=== PATIENT | female | born 1995 | race Caucasian/White ===

== ENCOUNTER 2017-11-29 11:39 | Emergency (ER) | payer MEDICAID, OTHER ==
[2017-11-29 11:48] VITALS: O2SAT 98
[2017-11-29 12:54] LABS: HCG,QUALITATIVE URINE NEGATIVE (NEGATIVE)
[2017-11-29 12:56] LABS: URINE BILIRUBIN NEGATIVE (NEGATIVE); URINE BLOOD NEGATIVE (NEGATIVE); URINE CLARITY Clear (Clear); URINE COLOR Yellow (YELLOW); URINE GLUCOSE (UA) NORMAL (Normal); URINE LEUKOCYTE ESTERASE NEG Leu/uL (Negative); URINE PROTEIN NEGATIVE (NEGATIVE); URINE UROBILINOGEN NORMAL mg/dL (0.2-1.0)
--- NOTE | 2017-11-29 13:05 | C.PDOC ---
History Of Present Illness 22-year-old female presents to the emergency department with complaints of blood in stool. Patient states that three days ago, she had a small amount of bright red blood in her in the toilet after a bowel movement, and another episode yesterday which prompted ER visit. Patient denies rectal pain, abdominal /pelvicpain, nausea/vomiting/diarrhea, hematemesis, back pain, chest pain, SOB, weakness, trauma/injuries, prior similar symptoms. No other complaints at this time. Time Seen by Provider: 11/29/17 12:04 Chief Complaint (Nursing): GI Problem History Per: Patient History/Exam Limitations: no limitations Current Symptoms Are (Timing): Gone Severity: Mild Associated Symptoms: Other (rectal bleeding x 2 ) Abnormal Vaginal Bleeding: No Past Medical History Reviewed: Historical Data, Nursing Documentation, Vital Signs Vital Signs: Last Vital Signs Temp 98.8 F 11/29/17 13:21 Pulse 57 L 11/29/17 13:21 Resp 16 11/29/17 13:21 BP 106/70 11/29/17 13:21 Pulse Ox 98 11/29/17 16:47 - Medical History PMH: No Chronic Diseases - [facility] Procedures CLOSURE SKIN & SUBCUTANEOUS NEC (04/16/14) TETANUS TOXOID ADMINIST (04/16/14) Family History: States: No Known Family Hx - Social History Hx Tobacco Use: No Hx Alcohol Use: Yes Hx Substance Use: No - Immunization History Hx Tetanus Toxoid Vaccination: Yes Hx Influenza Vaccination: No Hx Pneumococcal Vaccination: No Review Of Systems Constitutional: Negative for: Fever Cardiovascular: Negative for: Chest Pain, Palpitations Respiratory: Negative for: Cough, Shortness of Breath Gastrointestinal: Positive for: Hematochezia. Negative for: Nausea, Vomiting, Abdominal Pain, Diarrhea, Rectal Pain Genitourinary: Negative for: Dysuria, Hematuria, Vaginal Discharge Musculoskeletal: Negative for: Back Pain Physical Exam - Physical Exam Appears: Well, Non-toxic, No Acute Distress Skin: Normal Color, Warm, Dry, No Rash Oral Mucosa: Moist Cardiovascular: Rhythm Regular Respiratory: Normal Breath Sounds, No Rales, No Rhonchi, No Wheezing Gastrointestinal/Abdominal: Normal Exam, Bowel Sounds, Soft, No Tenderness Rectal: No Blood Streaked Stool, Hemorrhoids (Palpable internal hemorrhoid 6 o' clock. No gross blood. No fissures, normal tone), Tenderness Extremity: Normal ROM Neurological/Psych: Oriented x3 ED Course And Treatment O2 Sat by Pulse Oximetry: 98 (RA) Pulse Ox Interpretation: Normal Progress Note: Patient given colace in ED, and Rxs for colace and anusol suppositories. Patient instructed to follow up with general surgeon within 1 week, and was also instructed on doing sitz baths. She understands she should return to ED if symptoms worsen. Disposition Counseled Patient/Family Regarding: Diagnosis, Need For Followup, Rx Given - Disposition Referrals: Sid Michel MD [Staff Provider] - Disposition: HOME/ ROUTINE Disposition Time: 13:05 Condition: STABLE Additional Instructions: FOLLOW UP WITH GENERAL SURGEON WITHIN 1 WEEK USE MEDICATIONS DIRECTED RETURN TO EMERGENCY ROOM IF SYMPTOMS WORSEN SEGUIMIENTO CON CIRUJANO GENERAL DENTRO DE 1 SEMANA USE MEDICAMENTOS SEGN LO INDICADO REGRESE AL EVERARDO DE EMERGENCIA SI LOS SNTOMAS EMPEORAN Prescriptions: Docusate [Colace] 100 mg PO DAILY #30 cap Hard Fat/Phenylephrine [place] [Anusol Suppository] 1 sup RC TID #15 sup Instructions: Hemorrhoids (DC), How to Do a Sitz Bath Forms: [employer] (Welsh) Print Language: POLISH - Clinical Impression Clinical Impression: Internal hemorrhoid - Scribe Statement The provider has reviewed the documentation as recorded by the Scribe (Magdaleno Lerner) All medical record entries made by the Scribe were at my direction and personally dictated by me. I have reviewed the chart and agree that the record accurately reflects my personal performance of the history, physical exam, medical decision making, and the department course for this patient. I have also personally directed, reviewed, and agree with the discharge instructions and disposition.
[2017-11-29 13:23] VITALS: BP 106/70; PULSE 57; RESP 16; TEMP 98.8
== END 2017-11-29 13:33 | disposition home or self-care (01) ==
LOC: C.ER 11:39
DX: K64.8 Other hemorrhoids (principal)